=== PATIENT | female | born 1995 | race Caucasian/White ===

== ENCOUNTER 2020-02-10 13:26 | Emergency (ER) | payer OTHER ==
[~2020-02-10] VITALS: Ht 152.4 cm; Wt 63.6 kg
[2020-02-10 13:31] VITALS: Ht 152.4 cm; Wt 63.6 kg
[2020-02-10] MEDS ORDERED: BIRTH CONTROL (13:32)
[2020-02-10] MEDS ORDERED: HYDROCODON-ACE1 EAC7 PO (15:19)
[2020-02-10 15:43] VITALS: BP 126/74
== END 2020-02-10 15:44 | disposition home or self-care (01) ==
LOC: D.ER 13:26
DX: S82.401A Unspecified fracture of shaft of right fibula, initial encounter for closed fracture (principal); W19.XXXA Unspecified fall, initial encounter; Y93.9 Activity, unspecified; Y92.9 Unspecified place or not applicable; S92.351A Displaced fracture of fifth metatarsal bone, right foot, initial encounter for closed fracture